=== PATIENT | male | born 1960 | race Caucasian/White ===

== ENCOUNTER 2022-04-10 19:13 | Emergency (ER) | payer BC, MEDICAID ==
[~2022-04-10] VITALS: Ht 170.2 cm; Wt 72.6 kg
--- NOTE | 2022-04-10 19:38 | NUR ---
[id number] FROM [facility] FOR [facility]ITNESSED 2 MIN SEIZURE -HT TRUAMA TO TONGUE, SKIN TARE LEFT HAND NOTED. PT A/O4. STATED PT'S FIRST SEIZURE. RESP EVEN AND NON LABORED; TOLERATING R/A WELL WITH NO SOB. CONNECTED PT TO POX AND MONITOR. SEIZURE & SAFETY PRECAUTIONS IN PLACE. LAC #18G S/L INSERTED DETACKER
[2022-04-10] MEDS ORDERED: IV NS 0.9% 1,000 ML BAG IV ONE (20:00)
[2022-04-10] MEDS ORDERED: LEVETIRACETAM (500MG) 500 MG in IV NS 0.9% 100 ML IV ONE (20:00)
[2022-04-10] MEDS ORDERED: LEVETIRACETAM (500MG) 500 MG/5 ML VIAL IV ONE (20:01)
--- NOTE | 2022-04-10 20:03 | NUR ---
PT TAKEN TO CT VIA [facility]
--- NOTE | 2022-04-10 20:05 | NUR ---
Eric kang: [phone]
--- NOTE | 2022-04-10 20:22 | NUR ---
MOONER AT PT'S BEDSIDE. OFFERED PT URINAL; AWAITING FOR URINE SAMPLE
[2022-04-10 20:47] LABS: BASOPHILS % (AUTO) 0.2 % (0.0-2.0); EOSINOPHILS % (AUTO) 2.2 % (0.0-6.0); HEMATOCRIT 47 % (39-51); HEMOGLOBIN 16.4 g/dL (13.5-17.5); LYMPHOCYTES # (AUTO) 1.1 K/uL (0.8-4.8); LYMPHOCYTES % (AUTO) 16.3 % (20.0-44.0); MEAN CORPUSCULAR HGB CONC 35 g/dl (31.0-36.0); MEAN CORPUSCULAR VOLUME 93 fL (80-96); MONOCYTES # (AUTO) 0.5 K/uL (0.1-1.30); MONOCYTES % (AUTO) 7.7 % (2.0-12.0); NEUTROPHILS % (AUTO) 73.6 % (43.0-81.0); PLATELET COUNT (AUTO) 203 K/uL (150-450); RED BLOOD CELL COUNT(AUTO) 5.04 MIL/uL (4.5-6.0); WHITE BLOOD COUNT (AUTO) 6.8 K/uL (4.3-11.0)
[2022-04-10 21:37] LABS: ALANINE AMINOTRANSFERASE 65 U/L (12-78); ALBUMIN 5.1 g/dL (3.4-5.0); ALCOHOL, BLOOD < 3 mg/dL (0-0); ALKALINE PHOSPHATASE 88 U/L (46-116); ASPARTATE AMINOTRANSFERASE 89 U/L (15-37); BILIRUBIN,DIRECT 0.3 mg/dL (0.0-0.2); BILIRUBIN,TOTAL 0.9 mg/dL (0.2-1.0); CALCIUM, SERUM 9.4 mg/dL (8.5-10.1); CARBON DIOXIDE 23 mmol/L (21-32); CHLORIDE 97 mmol/L (98-107); CREATININE 0.8 mg/dL (0.6-1.3); GLUCOSE 93 mg/dL (74-106); POTASSIUM 3.6 mmol/L (3.5-5.1); SODIUM SERUM 135 mmol/L (136-145); TOTAL PROTEIN, SERUM 9.2 g/dL (6.4-8.2)
[2022-04-10 21:51] LABS: UREA NITROGEN, BLOOD 7 mg/dL (7-18)
--- NOTE | 2022-04-10 21:54 | NUR ---
Patient discharged to home in stable condition. Written and verbal after care instructions given. Patient verbalizes understanding of instruction. IV removed. Catheter intact and site benign. Pressure and 4x4 applied to site. No bleeding noted. pt ambulatory with a steady gait
[2022-04-10 22:21] VITALS: BP 148/68
== END 2022-04-10 21:58 | disposition home or self-care (01) ==
LOC: ER 19:29
DX: R56.9 Unspecified convulsions (principal)
CPT/HCPCS: 99285; 96365; 93005; 71045; 70450; 85025; 80048; 80076; 36415; 85730; 82962; 80320; J7030 ×3; J1953 ×2; G0480